=== PATIENT | male | born 1955 | race Caucasian/White ===

== ENCOUNTER 2024-08-03 14:18 | Inpatient (IN) | payer OTHER, SELFPAY ==
[2024-08-03] VITALS (8 sets, daily range): BP systolic 119–180; BP diastolic 57–73; BMI 32.3; BMI 31.6
--- NOTE | 2024-08-03 09:08 | ED.GENMED ---
History of Present Illness
General
Chief Complaint: Abdominal Pain
Source: patient and records
Exam Limitations: none
Time Seen by Provider: 08/03/24 08:59
Nursing documentation reviewed up to this point in time: agreed with
History of Present Illness
History of Present Illness:
69-year-old male with past medical history as documented presents to the ER for evaluation of abdominal pain. Patient reports symptoms started this morning have been constant since that time. He reports pain in the mid abdomen around the umbilicus
radiates towards the left. No clear triggering or relieving factors noted. Associated with nausea but no vomiting. Denies diarrhea or constipation. Denies fever or chills. Denies urinary symptoms. He says he had similar symptoms in the past
but on the right side related to his gallbladder�prior surgical history of cholecystectomy.
Past History
Past History
ED Past Medical History: Asthma, Hypercholesterolemia, NIDDM, Seizures, Psychiatric (Schizophrenia, anxiety) and Other (Chronic static encephalopathy, Myasthenia Graves, Pancreatitis)
ED Past Surgical History: Cholecystectomy and Orthopedic (Right ankle surgery)
Social History
Tobacco: Non-smoker
Alcohol: None
Drug: None
Personal: Single
Living: other ([facility])
Employment: Disabled
Family History
Family History: Unable to obtain
Review of Systems
Review of Systems
All Other Systems: ROS reviewed and negative except as documented in HPI and ROS
Constitutional: Denies fever or chills
Respiratory: Denies trouble breathing
Cardiac: Denies chest pain
ABD/GI: Reports abdominal pain and nausea; Denies vomiting, diarrhea or constipated
: Denies dysuria, frequency or flank pain
Musculoskeletal: Denies neck pain or back pain
Neurological: Denies headache
Phy Exam
Physical Exam
Physical Exam:
General: Awake, alert, oriented x3; no acute distress
Head: Normocephalic, atraumatic
Eyes: Conjunctiva normal, sclera anicteric
Throat: Airway intact, handling secretions, moist mucous membranes
Neck: Trachea midline, supple without meningismus
Lungs: Clear to auscultation bilaterally, no wheezing, rales, rhonchi
Heart: Regular rate and rhythm, no murmurs, gallops, or rubs
Abd: Soft, non distended, tender to palpation left upper and lower abdomen, no palpable mass
Neuro: No gross deficits, ambulatory
Skin: no rash in area of concern
Extremities: Warm and well-perfused
Scores
Heart Failure Risk
Heart Failure Risk Score: Not Applicable
Heart Score for Chest Pain Patients
STEMI patient?: Not applicable
Withdrawal Assessment of Alcohol
Withdrawal Assessment Completed?: Not applicable
Course
Orders/Labs/Results
Orders:
Orders
08/03/24 09:00
Urinalysis Reflex To Culture Urgent
08/03/24 09:01
CT Abd/pelvis W Iv Cont Urgent
Comment:
Reason For Exam: lower abd pain and tenderness
08/03/24 09:10
Ketorolac [Toradol] 15 mg IV NOW STA
08/03/24 09:14
Alcohol Urgent
Complete Blood Count/With Diff Urgent
Comprehensive Metabolic Panel Urgent
LDH Urgent
Comment: ADD ON
Lipase Urgent
08/03/24 10:34
Add On- LAB Urgent
Tests Added?: LDH
HYDROmorphone [Dilaudid] 0.5 mg IV NOW STA
Ondansetron Injectable [Zofran] 4 mg IV NOW STA
08/03/24 10:35
0.9% Sodium Chloride 500 ml [Nss] 500 ml IV BOLUS
08/03/24 11:26
Add On- LAB Urgent
Tests Added?: ETOH
Abnormal Lab Results
08/03/24
09:14
WBC 10.9 H 10^3/uL
(4.8-10.8)
Hct 38.9 L %
(39.0-52.0)
RDW 14.6 H %
(11.5-14.5)
Absolute Neuts (auto) 8.9 H 10^3/uL
(1.4-6.5)
Absolute Lymphs (auto) 1.1 L 10^3/uL
(1.2-3.4)
Neutrophils % 81.3 H %
(42.2-75.2)
Lymphocytes % 10.1 L %
(20.5-51.1)
Glucose 208 H mg/dl
(70-99)
Total Bilirubin 1.9 H mg/dl
(0.2-1.3)
Lactate Dehydrogenase 254 H U/L
(120-246)
Lipase 1931 H* U/L
(23-300)
08/03/24 09:14
08/03/24 09:14
Vital Signs
Initial and Last Documented VS:
Initial Vital Signs
Temp Pulse Resp BP Pulse Ox
37.1 C 57 18 119/57 99
08/03/24 08:37 08/03/24 08:37 08/03/24 08:37 08/03/24 08:37 08/03/24 08:37
Last Documented Vital Signs
Temp Pulse Resp BP Pulse Ox
37.1 C 54 18 149/65 99
08/03/24 08:37 08/03/24 11:20 08/03/24 11:20 08/03/24 11:20 08/03/24 11:20
MDM/Problems Addressed
Differential Diagnosis Includes:
Nephrolithiasis, diverticulitis, gastritis/PUD, pancreatitis
MDM/Problems Addressed:
69-year-old male presents for evaluation of abdominal pain as described above. Vitals and exam as above. Will place an IV check labs including a CBC and a CMP, lipase. Will check urinalysis. Send for CT abdomen pelvis. Treat pain. Monitor
closely reassess after the above.
Labs reviewed: CBC shows leukocytosis, CMP shows mild hyperglycemia. LFTs normal. Lipase markedly elevated at 1931 consistent with diagnosis of acute pancreatitis. Patient denies alcohol use, will add alcohol level. CT pending.
CT shows acute on chronic pancreatitis. Will plan to admit for continued management. Discussed with hospitalist.
*Radiology
Radiology exam reviewed: radiology read reviewed
*Pulse Oximetry
Patient hypoxic: no
*Critical Care Note
Total Time (30-74mins, 75-104mins- exclusive of procedures): Not Applicable
Data Reviewed
Review of Other/Old Records Reveals: Labs and Records
Source: patient and records
Patient Management
Discussion with other providers: Hospitalist (Discussed with hospitalist)
Escalation/DeEscalation of care consider admission/obs:
Admission indicated
ED Attending Note
-
Portions of this chart may have been created with voice recognition software.� Occasional wrong word or��sound alike� substitutions may have occurred due to the inherent limitations of voice recognition software.
Discharge Plan
Departure
Patient Disposition: Admit
Date of Disposition: 08/03/24
Time of Disposition: 11:58
Admit to doctor: Sonal
Presentation/result/management discussed w/ accepting MD/DO: Hospitalist
Discharge Problem:
Acute pancreatitis
Prescriptions:
No Action
budesonide-formoterol [Symbicort] 1 PUFF HFA aerosol inhaler
2 puff inhalation R BID
metformin 1,000 MG tablet
1,000 mg PO BID@1200,1700
ergocalciferol (vitamin D2) 50,000 UNITS capsule
50,000 units PO SUWE
omeprazole 40 MG capsule,delayed release(DR/EC)
40 mg PO DAILY@1130
aripiprazole 15 MG tablet
20 mg PO HS
pyridostigmine bromide 60 MG tablet
90 mg PO QID Qty: 180 0RF
Rx Instructions:
Take 1.5 pills (90mg) 4x/day
eculizumab [Soliris] 10 MG/ML solution
900 mg IV .Q2 WEEKS
Patient Comments:
Had first dose in OID on 08/08. will be receiving at home hence forth
prednisone 20 MG tablet
2 tablets PO DAILY
lansoprazole 30 MG tablet,disintegrat, delay rel
30 mg PO DAILY 14 Days Qty: 14 0RF
Rx Instructions:
Take with breakfast
Referrals:
Arcadio Neville MD [Family Provider] -
Interventions
Interventions:
*Risk Screen - Suicide Last Done: 08/03/24 08:37
*General Assessment Last Done: 08/03/24 08:37
*Neglect/Abuse Screening Last Done: 08/03/24 08:37
*ED COVID-19 Vaccine History Last Done: 08/03/24 08:37
DL-Fouhdy-Rmddigahxp Assessment Last Done: 08/03/24 09:17
Discharge Date and Time
Print Language: SAMMARINESE
[2024-08-03] MEDS: TORADOL 15 MG IV (09:20)
[2024-08-03 09:28] LABS: % Basophils 0.7 % (0-2); % Eosinophils 1.8 % (0-6); % Immature Granulocytes 0.4 % (0-0.5); % Lymphocytes 10.1 % (20.5-51.1); % Monocytes 5.7 % (1.7-9.3); % Neutrophils 81.3 % (42.2-75.2); Absolute Basophils 0.1 10^3/uL (0-0.2); Absolute Eosinophils 0.2 10^3/uL (0-0.7); Absolute Lymphocytes 1.1 10^3/uL (1.2-3.4); Absolute Monocytes 0.6 10^3/uL (0.1-0.6); Absolute Neutrophils 8.9 10^3/uL (1.4-6.5); Hematocrit 38.9 % (39.0-52.0); Hemoglobin 13.3 g/dL (13.0-18.0); Mean Corp Hgb Conc. 34.2 g/dL (33.0-37.0); Mean Corpuscular Hgb 27.4 pg (27.0-31.0); Mean Platelet Volume 9.2 fL (7.4-10.4); Nucleated Red Blood Cells % 0 % (-); Platelet Count 153 10^3/uL (130-400); Red Blood Cell Count 4.86 10^6/uL (4.70-6.10); Red Cell Dist. Width 14.6 % (11.5-14.5); White Blood Cell Count 10.9 10^3/uL (4.8-10.8)
[2024-08-03 10:19] LABS: Albumin 4.4 g/dl (3.5-5.0); Alkaline Phosphatase 77 U/L (38-126); Blood Urea Nitrogen 9 mg/dl (9-20); Calcium 9.5 mg/dl (8.4-10.2); Carbon Dioxide 25 mmol/L (22-30); Chloride 107 mmol/L (98-107); Estimated Creatinine Clearance 104 ml/min; Glucose 208 mg/dl (70-99); Sodium 139 mmol/L (135-145); Total Protein 7.2 g/dl (6.3-8.2); eGFR > 60.00
[2024-08-03 10:20] LABS: ALT (SGPT) 34 U/L (0-50); AST (SGOT) 38 U/L (17-59); Total Bilirubin 1.9 mg/dl (0.2-1.3)
[2024-08-03 10:34] LABS: Lipase 1931 U/L (23-300)
[2024-08-03] MEDS: NSS 500 IV (10:55)
[2024-08-03] MEDS: ZOFRAN 4 MG IV ×2 (10:55→23:32)
[2024-08-03 10:59] LABS: LDH 254 U/L (120-246)
[2024-08-03 12:01] LABS: Alcohol None Detected
[2024-08-03 12:42] LABS: Urine Albumin 1+ (Neg - Trace); Urine Bilirubin Negative (Negative); Urine Character Clear (Clear); Urine Color Yellow; Urine Glucose Negative (Negative); Urine Ketone Negative (Negative); Urine Leukocyte Negative (Negative); Urine Nitrite Negative (Negative); Urine Occult Blood Negative (Negative); Urine Urobilinogen Negative (Neg - 1+)
--- NOTE | 2024-08-03 12:56 | HPS.HSE ---
Family Physician
-
Family Physician: Arcadio Neville
Chief Complaint
-
abdominal pain
History of Present Illness
69-year-old male with past medical history chronic pancreatitis, diabetes type 2, myasthenia gravis, chronic static encephalopathy, mood disorder who presented to ED for abdominal pain. He says the abdominal pain woke him up this morning, and
the pain is localized to the middle and lower abdomen. He denies radiation of pain, nausea, vomiting, diarrhea, constipation. His last BM was this morning, no black/bloody stools. Remainder of ROS negative.
Otherwise he was in his usual baseline state of health. He lives at [facility] with assisted living. He ambulates without assistance, and does not use a walker or cane. He denies recent medication changes.
Medical History
Past Medical History
Past Medical History: Reports Asthma (Does not use inhalers), Hypercholesterolemia, NIDDM, Seizures (Remote history, not on meds), Psychiatric (?Schizophrenia (denies), bipolar disorder) and Other (Chronic static encephalopathy, myasthenia gravis,
chronic pancreatitis)
Past Surgical History: Reports Cholecystectomy and Orthopedic (R ankle)
Social History
Tobacco: Non-smoker
Alcohol: None
Drug: None
Living: Assisted Living ([facility])
Family History
Family History: Not pertinent
Allergies / Home Medications
Allergies reflects when Allergies were last updated in [employer].
Home Medications with original date entered in [employer]
Allergy/Medication List:
Allergies
To me, patient only reports allergy to risperidone (states reaction is slurred speech). Otherwise denies any allergies. Outpatient was prescribed EpiPen as a precaution in case he had a reaction to ultomiris (ravulizumab) infusion, which he has
not had any issues with.
Allergy/AdvReac Type Severity Reaction Status Date / Time
aspirin Allergy UPSET Verified 08/03/24 08:41
STOMACH
codeine Allergy Unknown Verified 08/03/24 08:41
risperidone Allergy Unknown Verified 08/03/24 08:41
temazepam [From Restoril] Allergy Unknown Verified 08/03/24 08:41
Home Medications
omeprazole 40 mg capsule,delayed release 40 mg PO NOON Gastrointestinal issue 08/21/20
aripiprazole 20 mg tablet 20 mg PO HS 08/03/24
glipizide 2.5 mg tablet, extended release 24 hr 2.5 mg PO DAILY 08/03/24
vkuuyh-mwiorvmv-cbckrtr 12,000-38,000-60,000 unit capsule,delayed rel (Creon) 1 cap PO BID@1200,1700 08/03/24
kgekgt-pgesqlga-yoapdic 12,000-38,000-60,000 unit capsule,delayed rel (Creon) 1 cap PO DAILYPRN PRN snack 08/03/24
montelukast 10 mg tablet 10 mg PO HS 08/03/24
pyridostigmine bromide 60 mg tablet 120 mg PO QID 08/03/24
ravulizumab-cwvz 100 mg/mL intravenous solution (Ultomiris) 100 mg IV Q8W 08/03/24
Review of Systems
-
A 12 point ROS was completed and negative except as noted: Yes
Constitutional: Reports No Symptoms; Denies Fever or Chills
EENT: Reports No Symptoms; Denies Sore Throat or Runny Nose
Respiratory: Reports No Symptoms; Denies Cough or Trouble Breathing
Cardiac: Reports No Symptoms; Denies Chest Pain, Palpitations or Syncope
Abdomen/GI: Reports See HPI and Abdominal Pain; Denies Nausea, Vomiting, Diarrhea, Constipated, Bloody Stools or Black Stools
: Reports No Symptoms; Denies Dysuria or Difficulty Voiding
Musculoskeletal: Reports No Symptoms; Denies Muscle Pain or Edema
Skin: Reports No Symptoms
Neurological: Reports No Symptoms; Denies Dizzy
Endocrine: Reports No Symptoms
Hematologic/Lymphatic: Reports No Symptoms
Psych: Reports No Symptoms, Suicidal and Other (Mood stable. Denies symptoms of depression/santos/anxiety. Denies audio/visual hallucinations. Denies suicidal/homicidal ideation.)
Physical Exam
Vital Signs
Vital Signs
Temp Pulse Resp BP Pulse Ox
98.8 F 54 18 139/69 99
08/03/24 08:37 08/03/24 11:20 08/03/24 11:20 08/03/24 12:23 08/03/24 12:24
Physical Exam
General: No Apparent Distress, Comfortable, Conversant, Slurred Speech, Appears Chronically Ill and Obese; No Pain, Fever, Chills or Sweats
HEENT: NormoCephalic, Anicteric, Atraumatic and Other (Poor dentition); No Oxygen
Respiratory: Clear (Anterior lung means) and Non Labored Respirations
Cardiac: S1/S2, Regular Rhythm and Bradycardia (HR 55); No Peripheral Edema or Calf Tenderness
GI: Soft, Non Distended (Obese abdomen), Normal Bowel Sounds and Tender (Mild TTP diffusely)
Musculoskeletal: No Edema
Skin: Warm and Dry
Neuro: Awake, Alert, Oriented, AO x 3, Nonfocal/grossly intact and Other (No ptosis); No Facial Droop
Psych: Calm
Laboratory Results
-
08/03/24 09:14
08/03/24 09:14
Laboratory Results
Total Bilirubin 1.9 mg/dl (0.2-1.3) H 08/03/24 09:14
AST 38 U/L (17-59) 08/03/24 09:14
ALT 34 U/L (0-50) 08/03/24 09:14
Alkaline Phosphatase 77 U/L (38-126) 08/03/24 09:14
Lipase 1931 U/L (23-300) H* 08/03/24 09:14
Data Reviewed
-
CT Scan: Image Personally Visualized and interpreted and Report Reviewed by me
Lab Data: Labs Reviewed by me, Discussed with Physician and Discussed with Patient
Old Records: Reviewed
Impression/Plan
-
69-year-old male with past medical history chronic pancreatitis, diabetes type 2, myasthenia gravis, chronic static encephalopathy, mood disorder who presented to ED for abdominal pain, now admitted for acute pancreatitis.
Acute pancreatitis- CT scan with findings of acute on chronic pancreatitis, lipase 1931 on admission
History of chronic pancreatitis on Creon
-Unclear etiology of acute pancreatitis. Denies alcohol use, and quant alc negative on admission. Calcium normal. Tbili 1.9 on admission, no biliary or CBD duct dilation on CT scan plus history of cholecystectomy, but may have passed gallstone
spontaneously. Hold glipizide, may have contributed to stimulation of pancreas. Triglycerides and IgG4 pending.
-Continue IV fluid hydration with LR. Clear liquid diet; advance diet gradually as tolerated. Continue supportive measures, Zofran, pain management. Trend CBC, CMP.
-Mild leukocytosis on admission, likely reactive secondary to above. No other signs/symptoms of infection. Trend CBC, follow temperature curve.
Diabetes type 2- check A1C, hold home glipizide, accuchecks and insulin sliding scale while inpatient
Myasthenia gravis- symptoms well controlled. Continue home pyridostigmine
Mood disorder- Continue home aripiprazole. Mood stable, denies sx depression/anxiety/santos, denies SI/HI, denies auditory/visual hallucinations.
Code status: full
VTE ppx: Lovenox
Diet: Clear liquid as tolerated
Dispo planning: anticipate return to [facility] at discharg
[2024-08-03 14:00] LABS: Urine Mucus Few; Urine Red Blood Cell None Seen /HPF (0-2); Urine Squamous Cell 0-2 /LPF (Few); Urine White Cell 0-2 /HPF (0-5)
--- NOTE | 2024-08-03 14:34 | W.PN.UPDATE ---
Update Note
Progress Note Update
Seen and examined by me independently in collaboration with the medcial student Dr. Aguirre.
Past medical history/social history/medication/allergies reviewed.
Lab data and imaging data reviewed.
Patient presents with acute abdominal pain with nausea and diagnosed to have acute on chronic pancreatitis without any local complications. Not septic in nature. No SIRS criteria present. Had a prior cholecystectomy. No evidence of obvious CBD
stones on imaging. No alcohol use. Unclear etiology.
Patient denies having had been told he had a pancreatitis but he remembers the gallbladder encounter. When asked why he is on Creon he says it was put by his PCP. CT imaging does show chronic pancreatitis signs.
He has autoimmune condition in the form of myasthenia gravis. Check IgG4 level.
Check triglycerides.
Consult GI.
Keep him on clear liquid diet for now. Start on IV fluids and pain medication for pancreatitis.
Full code but if in persistent vegetative state or irreversible state of health or terminal condition he would not want to be resuscitated.
[2024-08-03] MEDS: LR 1000 IV ×2 (15:57→21:41)
--- NOTE | 2024-08-03 17:00 | PTCARENOTE ---
pt received from ED. Pt AAOx3. Bp elevated initially but stable once settled on unit. Otherwise VSS. Pt walked from ED stretcher to bed 316-1. Oriented to unit by this RN. Pt only complains of hunger pains, otherwise denies pain. Clear liquid tray
on the way from kitchen. Call pineda within reach, will continue to monitor.
[2024-08-03] MEDS: LOVENOX 40 MG SC (17:09)
[2024-08-03] MEDS: MESTINON 120 MG PO ×2 (17:09→21:45)
[2024-08-03] MEDS: ZENPEP DELAYED RELEASE CAPSULE 1 CAPSULE PO (17:09)
[2024-08-03 20:46] LABS: Direct Bilirubin 0.3 mg/dl (0.0-0.4); HDL Cholesterol 30 mg/dl; LDL Cholesterol, Calculated 107 mg/dl; Total Cholesterol 169 mg/dl (50-199); Triglyceride 162 mg/dl (10-149); Triglycerides 162 mg/dl (10-149); Very Low Density Lipoprotein 32 mg/dl (0-30)
[2024-08-03] MEDS: SINGULAIR 10 MG PO (21:45)
[2024-08-03] MEDS: ABILIFY 20 MG PO (21:45)
[2024-08-04] MEDS: DILAUDID 0.25 MG IV (00:04)
[2024-08-04] MEDS: LR 1000 IV ×4 (02:42→23:29)
[2024-08-04 06:53] LABS: Hematocrit 37.2 % (39.0-52.0); Hemoglobin 12.6 g/dL (13.0-18.0); Mean Corp Hgb Conc. 33.9 g/dL (33.0-37.0); Mean Corpuscular Hgb 27.3 pg (27.0-31.0); Mean Corpuscular Volume 80.7 fL (80.0-94.0); Platelet Count 135 10^3/uL (130-400); Red Blood Cell Count 4.61 10^6/uL (4.70-6.10); Red Cell Dist. Width 14.6 % (11.5-14.5); White Blood Cell Count 7.8 10^3/uL (4.8-10.8)
[2024-08-04 07:05] VITALS: BP 128/56
[2024-08-04 07:19] LABS: Blood Urea Nitrogen 8 mg/dl (9-20); Carbon Dioxide 29 mmol/L (22-30); Chloride 104 mmol/L (98-107); Estimated Creatinine Clearance 92 ml/min; Glucose 150 mg/dl (70-99); Potassium 4.3 mmol/L (3.5-5.1); Sodium 138 mmol/L (135-145); eGFR > 60.00
[2024-08-04] MEDS: MESTINON 120 MG PO ×2 (08:18→12:00)
--- NOTE | 2024-08-04 09:01 | VATNOTE ---
VAT rounds: during routine rounds it was identified that pt's IV was infiltrated and fluid was collecting in the surrounding tissues. Pt denies pain. IV removed, heat applied, and extremity elevated.
[2024-08-04 09:03] LABS: Glycohemoglobin (HgbA1c) 7.8 % (4.0-5.6)
--- NOTE | 2024-08-04 09:29 | W.PN.UPDATE ---
Update Note
Progress Note Update
Seen and examined by me independently in collaboration with the director medical safety Dr. Aguirre.
Lab data and imaging data reviewed.
Addendum as below :
Patient feels improved. Denies any abdominal pain today. Tolerated clear liquid diet. Abdomen soft and nontender.
Await repeat lipase from today.
Advance diet to full liquid diet. Decrease IV fluids.
Await GI input.
--- NOTE | 2024-08-04 09:35 | W.PN.HOSP.TC ---
Addendum entered and electronically signed by Jan Desai MD 08/05/24 15:13:
Seen and examined by me independently in collaboration with the medical administrative specialist Dr. Aguirre.
Lab data and imaging data reviewed.
Addendum as below :
Resolved abdominal pain. Tolerating diet. Abdomen benign. Will discharge patient home today. Had earlier discussed with GI who is current see him in the office as follow-up.
Patient has been in sinus bradycardia without AV blocks or pauses ever since admission. With Mestinon on board on a high dose will need to evaluate as its relation. Discussed with primary neurologist Dr Stanton today who is agreeable to decrease
Mestinon to 90 mg 4 times daily and follow as an outpatient. Patient without any dizziness. No syncope. No hypotension noted.
Will discharge patient home with outpatient follow-up.
Told him discharge 32 minutes
Original Note:
Today's Communication/Plan
-
Advance diet as tolerated, continue IV/oral hydration, apprec GI
Assessment / Plan
Assessment / Plan
69-year-old male with past medical history chronic pancreatitis, diabetes type 2, myasthenia gravis, chronic static encephalopathy, mood disorder who presented to ED for abdominal pain, now admitted for acute pancreatitis.
Acute pancreatitis- CT scan with findings of acute on chronic pancreatitis, lipase 1931 on admission
History of chronic pancreatitis on Creon
-Unclear etiology of acute pancreatitis. Denies alcohol use, and quant alc negative on admission. Calcium normal. Tbili 1.9 on admission, no biliary or CBD duct dilation on CT scan plus history of cholecystectomy, but may have passed gallstone
spontaneously. Triglycerides mildly elevated, not likely contributing. IgG4 pending.
-Symptomatically improving. Tolerating clears, advance diet to full liquid then low fat as tolerated. Continue IV fluid hydration with LR, can reduce rate. Continue supportive measures, Zofran, pain management. Trend CBC, CMP.
-Mild leukocytosis on admission, likely reactive secondary to above. No other signs/symptoms of infection. Trend CBC, follow temperature curve.
-Apprec GI. Follow up with GI outpatient in 3-4 weeks and plan for MRI after resolution of inflammation from acute pancreatitis
Diabetes type 2- A1C 7.8 on admission, continue home glipizide, accuchecks and insulin sliding scale while inpatient. Follow up with PCP.
Myasthenia gravis- symptoms well controlled. Continue home pyridostigmine.
Mood disorder- Continue home aripiprazole. Mood stable, denies sx depression/anxiety/santos, denies SI/HI, denies auditory/visual hallucinations.
Code status: full
VTE ppx: Lovenox
Diet: Clear liquid as tolerated
Dispo planning: anticipate return to [facility] at discharg
Anticipated Discharge: Within 24 hours
Subjective/Interval History
-
Date of Service: August 04, 2024
No acute events overnight. Reports his abdominal pain is much better; had some nausea overnight that resolved, no vomiting. Tolerating clear liquids, would like to advance diet. Review of systems negative-- denies dizziness, chest pain, shortness of
breath, diarrhea, constipation.
Objective Data
-
Labs:
Laboratory Results
08/04/24
06:31
WBC 7.8
Hgb 12.6 L
Hct 37.2 L
Plt Count 135
Sodium 138
Potassium 4.3
Chloride 104
Carbon Dioxide 29
BUN 8 L
Creatinine 0.9
Glucose 150 H
Calcium 9.0
Vital Signs:
Vital Signs
Temp Pulse Resp BP Pulse Ox
98.0 F 53 18 128/56 98
08/04/24 07:05 08/04/24 07:05 08/04/24 07:05 08/04/24 07:05 08/04/24 07:05
I&O
08/03/24 08/04/24 08/05/24
06:59 06:59 06:59
Intake Total 240 / 240
Balance 240 / 240
Review of Systems
-
History Source: Patient
All other systems: Reviewed and negative
Physical Exam
-
General: Well Developed, Well Nourished, No Apparent Distress, Comfortable, Conversant, Slurred Speech and Obese; Negative Pain, Fever, Chills or Sweats
HEENT: Normocephalic, Atraumatic and Anicteric
Respiratory: Clear to Auscultation and Non Labored Respirations; Negative Wheezes, Rales, Rhonchi or Crackles
Cardiac: Regular Rhythm and S1/S2
GI: Soft, Nontender, Nondistended (obese abdomen) and Normal Bowel Sounds
Musculoskeletal: No Clubbing, No Cyanosis, No Edema and Other (trace edema right hand)
Skin: Warm and Dry
Neuro: Awake, Alert, Oriented, AO x 3 and Nonfocal/Grossly Intact; Negative Facial Droop
Psych: Calm
Data Reviewed
-
CT Scan: Image personally visualized and interpreted, Report Reviewed by me and Discussed with Patient
Labs: Labs Reviewed by me
Old Records: Reviewed
--- NOTE | 2024-08-04 11:36 | CM ---
Patient seen at bedside
IA completed
Lives at [facility] alone, elevator access
PLOF: independent
DME: denies, but states has access to w/c in apt complex
Denies VN/Rehab
PCP: Arcadio Neville
Pharmacy: [facility]
PLAN: home, no needs anticipated
[2024-08-04] MEDS: ZENPEP DELAYED RELEASE CAPSULE 1 CAPSULE PO ×2 (11:58→17:33)
[2024-08-04] MEDS: PROTONIX 40 MG PO (11:58)
[2024-08-04] MEDS: GLUCOTROL XL (EXTENDED RELEASE) 2.5 MG PO (11:58)
[2024-08-04 14:58] VITALS: BP 166/69
[2024-08-04] MEDS: MESTINON PO ×2 (17:32→21:53)
[2024-08-04] MEDS: LOVENOX 40 MG SC (17:33)
--- NOTE | 2024-08-04 17:51 | PTCARENOTE ---
pt BP 166/67, HR 47. MD made aware. EKG obtained showing sinus bradycardia. pt transferred to telemetry and parameters for pyridostigmine added. Will continue to monitor.
[2024-08-04 19:15] VITALS: BP 170/65
[2024-08-04] MEDS: ABILIFY 20 MG PO (21:53)
[2024-08-04] MEDS: SINGULAIR 10 MG PO (21:53)
[2024-08-04 23:20] VITALS: BP 167/69
[2024-08-05] MEDS: TORADOL 10 MG IV (02:33)
[2024-08-05 03:14] VITALS: BP 159/66
[2024-08-05 06:33] LABS: Hematocrit 36.3 % (39.0-52.0); Hemoglobin 12.6 g/dL (13.0-18.0); Mean Corp Hgb Conc. 34.7 g/dL (33.0-37.0); Mean Corpuscular Hgb 27.2 pg (27.0-31.0); Mean Corpuscular Volume 78.4 fL (80.0-94.0); Platelet Count 125 10^3/uL (130-400); Red Blood Cell Count 4.63 10^6/uL (4.70-6.10); Red Cell Dist. Width 14.5 % (11.5-14.5); White Blood Cell Count 6.7 10^3/uL (4.8-10.8)
[2024-08-05 07:22] VITALS: BP 130/68
[2024-08-05 07:40] LABS: Blood Urea Nitrogen 9 mg/dl (9-20); Calcium 9.1 mg/dl (8.4-10.2); Carbon Dioxide 26 mmol/L (22-30); Chloride 101 mmol/L (98-107); Glucose 126 mg/dl (70-99); Potassium 3.9 mmol/L (3.5-5.1); Sodium 136 mmol/L (135-145)
[2024-08-05 07:57] LABS: Estimated Creatinine Clearance 92 ml/min; eGFR > 60.00
[2024-08-05] MEDS: MESTINON 120 MG PO (08:20)
[2024-08-05] MEDS: GLUCOTROL XL (EXTENDED RELEASE) PO (08:22)
[2024-08-05] MEDS: LR 1000 IV (09:24)
--- NOTE | 2024-08-05 09:27 | W.PN.HOSP.TC ---
Today's Communication/Plan
-
Anticipate discharge today
Assessment / Plan
Assessment / Plan
69-year-old male with past medical history chronic pancreatitis, diabetes type 2, myasthenia gravis, chronic static encephalopathy, mood disorder who presented to ED for abdominal pain, now admitted for acute pancreatitis.
Acute pancreatitis- CT scan with findings of acute on chronic pancreatitis, lipase 1931 on admission
History of chronic pancreatitis on Creon
-Unclear etiology of acute pancreatitis. Denies alcohol use, and quant alc negative on admission. Calcium normal. Tbili 1.9 on admission but direct bili wnl, no biliary or CBD duct dilation on CT scan plus history of cholecystectomy.
Triglycerides mildly elevated, not likely contributing. IgG4 pending.
-Symptomatically improving. S/p IV fluid hydration with LR, now tolerating oral diet. Continue supportive measures, Zofran, pain management. LFTs wnl, except mildly elevated indirect bilirubin may be ?Gilbert.
-Mild leukocytosis on admission, likely reactive secondary to above. Resolved ; remains afebrile, no other signs/symptoms of infection.
-Apprec GI. Follow up with GI outpatient in 3-4 weeks and plan for MRI after resolution of inflammation from acute pancreatitis
Diabetes type 2- A1C 7.8 on admission, continue home glipizide, accuchecks and insulin sliding scale while inpatient. Follow up with PCP.
Bradycardia- HR 40s-50s overnight, asymptomatic. EKG with sinus bradycardia. ?Possible side effect of pyridostigmine- 2 doses held yesterday. Will ask neurology for input.
Myasthenia gravis- symptoms well controlled. Continue home pyridostigmine with hold parameters for bradycardia and will discuss dose with neurology prior to discharge. --> per Dr. Stanton, decrease dose to 90mg QID. Reviewed with patient; he has next
neurology appointment already scheduled for 08/09.
Mood disorder- Continue home aripiprazole. Mood stable, denies sx depression/anxiety/santos, denies SI/HI, denies auditory/visual hallucinations.
Code status: full
VTE ppx: Lovenox
Diet: Low-fat
Dispo planning: anticipate return to [facility] at discharg
Anticipated Discharge: Today
Subjective/Interval History
-
Date of Service: August 05, 2024
No acute events overnight. Feeling well, no complaints. He is looking forward to discharge today if possible. Review of systems negative-- denies dizziness, chest pain, shortness of breath, abdominal pain, nausea, vomiting, diarrhea,
constipation. Tolerating oral diet, enjoyed breakfast this morning. Last BM yesterday, no black/bloody stools. OOB to BR.
Objective Data
-
Labs:
Laboratory Results
08/05/24
06:26
WBC 6.7
Hgb 12.6 L
Hct 36.3 L
Plt Count 125 L
Sodium 136
Potassium 3.9
Chloride 101
Carbon Dioxide 26
BUN 9
Creatinine 0.9
Glucose 126 H
Calcium 9.1
Vital Signs:
Vital Signs
Temp Pulse Resp BP Pulse Ox
98 F 53 16 130/68 99
08/05/24 07:22 08/05/24 07:22 08/05/24 07:22 08/05/24 07:22 08/05/24 07:22
I&O
08/04/24 08/05/24 08/06/24
06:59 06:59 06:59
Intake Total 240 / 240 2160 / 2160
Output Total 1775 / 1775
Balance 240 / 240 385 / 385
Review of Systems
-
History Source: Patient
All other systems: Reviewed and negative
Physical Exam
-
General: Well Developed, Well Nourished, No Apparent Distress, Comfortable, Conversant, Slurred Speech and Obese; Negative Pain, Fever, Chills or Sweats
HEENT: Normocephalic, Atraumatic and Anicteric
Respiratory: Clear to Auscultation, Rhonchi (Right lower lobe) and Non Labored Respirations; Negative Wheezes, Rales or Crackles
Cardiac: Regular Rhythm, S1/S2 and Bradycardic (HR 50s)
GI: Soft, Nontender, Nondistended (obese abdomen) and Normal Bowel Sounds
Musculoskeletal: No Clubbing, No Cyanosis, No Edema and Other (trace edema right hand)
Skin: Warm and Dry
Neuro: Awake, Alert, Oriented, AO x 3 and Nonfocal/Grossly Intact; Negative Facial Droop
Psych: Calm
Data Reviewed
-
CT Scan: Image personally visualized and interpreted, Report Reviewed by me and Discussed with Patient
Labs: Labs Reviewed by me
Old Records: Reviewed
[2024-08-05 10:00] LABS: ALT (SGPT) 24 U/L (0-50); AST (SGOT) 27 U/L (17-59); Alkaline Phosphatase 84 U/L (38-126); Direct Bilirubin 0.4 mg/dl (0.0-0.4); Total Bilirubin 2.7 mg/dl (0.2-1.3)
[2024-08-05 11:31] VITALS: BP 177/66
[2024-08-05 11:55] VITALS: BP 120/60
[2024-08-05] MEDS: MESTINON PO (12:04)
[2024-08-05] MEDS: PROTONIX 40 MG PO (12:07)
[2024-08-05] MEDS: ZENPEP DELAYED RELEASE CAPSULE 1 CAPSULE PO (12:08)
--- NOTE | 2024-08-05 12:54 | PTCARENOTE ---
patient's HR bradycardic with heart rate in high 40's to low 60's. asymptomatic, tolerating diet, sitting oob in chair, ambulating around hallway with student nurse with supervision, gait steady, vss, will continue to monitor.
[2024-08-05 15:17] VITALS: BP 134/68
--- NOTE | 2024-08-05 17:34 | W.DCSUMMARY ---
Discharge Summary
Discharge Data
Date of Admission: 08/03/24
Date of Discharge: 08/05/24
-
Pending Results: Yes
Additional Pending Results:
IgG4
Hospital Course
CC PCP KALYAN GROVER
Discharging Physician : Dr. Aguirre/Dr. Desai
Disposition : Home (assisted living at [facility])
Primary care physician : Kalyan Grover
Principal Discharge diagnosis :
Acute pancreatitis
Bradycardia
Chronic Discharge diagnosis :
History of chronic pancreatitis
Myasthenia gravis
Diabetes type 2
History of mood disorder/encephalopathy
Hospital Course :
Presented to ED for abdominal pain. His labs, abdominal CT, and symptoms were consistent with acute pancreatitis. He was treated with IV fluids, supportive measures. His symptoms improved and he tolerated advancing his diet. The etiology of the
episode of acute pancreatitis is unclear; he will follow-up with GI outpatient for MRI in 3 to 4 weeks.
He remained in normal sinus rhythm but was noted to be bradycardic with heart rate in 40s to 50s on multiple occasions. This was asymptomatic. This was discussed with his primary neurologist Dr. Stanton, who advised decreasing his dose of
pyridostigmine from 120mg QID to 90mg QID. He will follow-up with his neurologist this week, and previously scheduled an appointment for 08/09. He will also follow-up with his primary care to monitor his heart rate. His other chronic conditions
remained stable. On day of discharge he was stable.
Important imaging findings :
Abdomen/pelvis CT 08/06/24
FINDINGS:
CHEST: Bilateral dependent atelectasis.
ABDOMEN:
The pancreas is atrophic and contains multiple parenchymal calcifications compatible with chronic pancreatitis. Peripancreatic inflammatory fat stranding most suggestive of superimposed acute pancreatitis. No loculated peripancreatic fluid
collection. Surgically absent gallbladder. No intrahepatic or extrahepatic bile duct dilatation. Mild reactive wall thickening of the common bile duct.
The liver, pancreas, and bilateral adrenal glands are unremarkable. Multiple bilateral renal cysts, left greater than right. No hydronephrosis.
The abdominal aorta is normal in caliber.
No abdominal or retroperitoneal lymphadenopathy.
No bowel wall thickening, obstruction, or inflammation. Colonic diverticulosis, without evidence for acute diverticulitis. No extraluminal free air or fluid collection. The appendix is within normal limits.
PELVIS: The urinary bladder is unremarkable. Mild enlargement of the prostate gland.
SKELETON: Chronic degenerative changes of the spine, bilateral sacroiliac joints, hips, and symphysis pubis.
IMPRESSION:
Acute on chronic pancreatitis. Recommend correlation with lipase levels. No loculated peripancreatic fluid collection. Reactive wall thickening of the adjacent common bile duct.
Other chronic findings, as detailed above.
Head CT 08/06/24
FINDINGS:
The ventricles are normal in size. No midline shift.
There is no acute infarct, hemorrhage or extra-axial fluid collection.
There is no mass or mass effect.
The visualized portions of the paranasal sinuses and orbits are clear of an acute process. No calvarial fracture. Minimal soft tissue swelling about the left.
IMPRESSION:
1. There is no acute intracranial process.
2. There is no significant interval change.
Procedure findings : N/A
Discharge Plan
-
Patient Disposition: Assisted Living
Discharge Diagnosis/Procedures: Acute pancreatitis; history of chronic pancreatitis
Bradycardia
Myasthenia gravis
Diabetes type 2
History of mood disorder
Condition: Good
Diet: As tolerated and Low Fat
Activity: As tolerated
Driving Restrictions: Not until seen by your Dr
Bathing Restrictions: OK to Shower
Blood Work: CMP with Primary Care in 1 week
Others Tests: Recheck your heart rate and/or EKG with Primary Care in 1 week
Activity Restrictions/Additional Instructions:
You were diagnosed with acute pancreatitis. You need to follow up with the Gastroenterology (GI) office in 3-4 weeks and get an MRI scan of your abdomen.
In the hospital, your heart rate was low. Your dose of Mestinon (pyridostigmine) was decreased. You need to see your Primary Care within 1 week to check your heart rate. You also need to follow up with the neurologist.
Instructions: Bradycardia, Pancreatitis - Discharge instructions, BLOOD PRESSURE
Referrals:
Otilio Stanton MD [Active] - 08/09/24 (You have an appointment scheduled with the Neurology office (Dr. Stanton) on 08/09/24. )
Kalyan Grover MD [Family Provider] - in less than 1 week (Call your Primary Care to schedule an appointment within 1 week. This is important to review your medication changes and monitor your heart rate.)
Lindsay Rubio DO [Active] - in three to four weeks (Call the Gastroenterology (GI) office to schedule an appointment. They will order an MRI scan of your abdomen in about 4 weeks.)
Additional Discharge Medication Instructions: Your dose of Mestinon (pyridostigmine) has been decreased. These are the same 60mg tablets, but you should take 1.5 tablets instead of 2 for each dose.
Take 1.5 tablets (90mg per dose) 4 times per day.
Prescriptions:
New
pyridostigmine bromide 60 mg Tablet
90 mg PO QID Qty: 180 0RF
Continued
omeprazole 40 MG capsule,delayed release(DR/EC)
40 mg PO NOON
glipizide 2.5 mg tablet extended release 24hr
2.5 mg PO DAILY
montelukast 10 mg tablet
10 mg PO HS
aripiprazole 20 mg tablet
20 mg PO HS
Creon 12,000-38,000 -60,000 unit capsule,delayed release(DR/EC)
1 cap PO BID@1200,1700
Creon 12,000-38,000 -60,000 unit capsule,delayed release(DR/EC)
1 cap PO DAILYPRN PRN (Reason: snack)
Ultomiris 100 mg/mL solution
100 mg IV Q8W
Discontinued
pyridostigmine bromide 60 MG tablet
120 mg PO QID
Discharge Orders:
Discharge Patient (As Directed); Ordered 08/05/24
Ordered By: Sindy Aguirre
Discharge Date and Time
Print Language: YAKUT
[2024-08-06 05:46] LABS: IgG Subclass 4 70 mg/dL (1-123)
== END 2024-08-05 20:04 | disposition home or self-care (01) | DRG 439 ==
LOC: 3 WEST ACU 14:18
PROVIDERS: Student in an Organized Health Care Education/Training Program; ADMITTING PHYSICIAN Internal Medicine; EMERGENCY PHYSICIAN Emergency Medicine; FAMILY PHYSICIAN Family Medicine
DX: K85.90 Acute pancreatitis without necrosis or infection, unspecified (principal); G93.49 Other encephalopathy; J98.11 Atelectasis; G70.00 Myasthenia gravis without (acute) exacerbation; E11.9 Type 2 diabetes mellitus without complications; F31.9 Bipolar disorder, unspecified; K86.1 Other chronic pancreatitis; Z90.49 Acquired absence of other specified parts of digestive tract; N28.1 Cyst of kidney, acquired; K57.30 Diverticulosis of large intestine without perforation or abscess without bleeding; N40.0 Benign prostatic hyperplasia without lower urinary tract symptoms; E78.00 Pure hypercholesterolemia, unspecified; Z79.84 Long term (current) use of oral hypoglycemic drugs; F20.9 Schizophrenia, unspecified; Z88.6 Allergy status to analgesic agent; Z88.5 Allergy status to narcotic agent; F41.9 Anxiety disorder, unspecified; J45.909 Unspecified asthma, uncomplicated; R56.9 Unspecified convulsions
CPT/HCPCS: 74177; 80048; 80053; 80061; 81003; 81015; 82077; 82247; 82248; 82787; 83036; 83615; 83690; 84075; 84450; 84460; 84478; 85025; 85027; 87070; 93005; 96361; 96374; 96375; 99284; Q9967